=== PATIENT | male | born 1945 | race Caucasian/White ===

== ENCOUNTER 2023-10-02 09:23 | Outpatient (REF) | payer MEDICARE, OTHER, SELFPAY ==
[2023-10-02 11:00] LABS: Folate 6.2 ng/mL (> or = 4.0); Vitamin B12 418 pg/mL (200-900)
== END 2023-10-02 09:24 | disposition home or self-care (01) ==
LOC: HO.LAB 09:23
PROVIDERS: PCP Internal Medicine; Visit Provider Psychiatry & Neurology Neurology
DX: G20.A1 Parkinson's disease without dyskinesia, without mention of fluctuations (principal)
CPT/HCPCS: 36415; 82607; 82746

== ENCOUNTER 2023-10-31 11:17 | Outpatient (REF) | payer MEDICARE, OTHER, SELFPAY ==
--- NOTE | ~2023-10-31 | MR_ITS ---
EXAMINATION: MR BRAIN WITHOUT CONTRAST CLINICAL INFORMATION: Symptomatic Parkinson's disease. COMPARISON: None available. TECHNIQUE: MRI of the brain was obtained using routine sequences without contrast. FINDINGS: No focal restricted diffusion is demonstrated to suggest acute or subacute cerebral ischemia. No evidence of acute or chronic hemorrhagic products on heme-sensitive imaging. Region of Chronic encephalomalacia in the high right frontal lobe. Scattered and partially confluent periventricular, deep white matter, and brainstem T2 FLAIR hyperintensities consistent with moderate underlying microangiopathy. Proportional prominence of the ventricles and sulcal spaces without evidence of obstructive hydrocephalus. No abnormal mass effect. No midline shift. Normal appearance of the pituitary gland. Normal positioning of the cerebellar tonsils. Normal arterial and venous vascular flow voids are present. Normal, homogeneous marrow signal. Mild mucosal thickening of the paranasal sinuses. Moderate rightward nasal septal deviation. No signal abnormalities within the mastoids. Bilateral lens extractions. MR/MR head/brain wo con IMPRESSION: 1. No acute intracranial abnormalities. 2. Region of chronic encephalomalacia in the high right frontal lobe. Moderate underlying microangiopathy and generalized cerebral volume loss.
== END 2023-10-31 11:18 | disposition home or self-care (01) ==
LOC: HO.MRI 11:17
PROVIDERS: PCP Internal Medicine; Visit Provider Internal Medicine
DX: G20.A1 Parkinson's disease without dyskinesia, without mention of fluctuations (principal)
CPT/HCPCS: 70551

== ENCOUNTER 2025-06-15 08:53 | Outpatient (AMB) | payer MEDICARE, OTHER, SELFPAY ==
--- OUTSIDE RECORDS SUMMARY | 2024-05-07 10:00 | XMS_ITS | Encounter Summary ---
Author Organization [facility] Address [address] [place] [address] Care Team Providers Care Corrugated Sheet Material Sheeter Name Role Phone Deloris Giordano MD Primary Care Provider [phone] Encounter Details Date Type Department Care Team (Late st Contact Info) Description 05/07/2024 11:00 AM EDT Hospital Encounter TH HISTORIC ENCOUNTERS EASTERN CONVERSION ONLY Ernst Coello, BIGG [address] [place] [phone] Atelectasis Social History Tobacco Use Types Packs/Day Years Used Date Smoking Tobacco: Every Day Pipe Smokeless Tobacco: Never Alcohol Use Standard Drinks/Week Comments Yes 0 (1 standard drink = 0.6 oz pur e alcohol) Sex and Gender Information Value Date Recorded Sex Assigned at Male 08/26/2024 9:02 AM EST Legal Sex Male 8:33 PM EST Gender Identity Male 08/26/2024 9:02 AM EST Sexual Orientation Straight 08/26/2024 9: 02 AM EST documented as of this encounter Plan of Treatment Upcoming Encounters Date Type Department Care Team (Late st Contact Info) Description 08/12/2025 10:10 AM EST Office Visit [facility] - [address] [facility] [address] [place] [address] Gail Arias NP [address] [place] [address] 08/25/2025 8:30 AM EST Office Visit Orthopedic Surgery - [place] [address] [facility] 250 [place] [address] Murali Resendiz, CORRINE 175 [facility] [address] [place] [address] documented as of this encounter Procedures Procedure Name Priority Date/Time Associated Diagnosis Comments CHEST ROUTINE 2 VIEWS Routine 05/07/2024 11:26 AM EDT Atelectasis documented in this encounter Results * CHEST ROUTINE 2 VIEWS (05/07/2024 11:26 AM EDT) Anatomical Region Laterality Modality Radiographic Tammie ging 05/07/2024 11:0 4 AM EDT Narrative 05/07/2024 11:26 AM EDT [facility] Diagnostic Imaging Department [address] [place] [id number] Patient: FARHATSTEVEO.B./Age/Sex: 1945 - 78 - M Unit#: [id number] Location/Status: SPDIGEN/REG CLI Mnemonic/Ordering Site: CHESTXR/SPDI Ordering Physician: ERNST COELLO PA-C Chest Routine 2 Views - 05/07/24 - 1113 Report Status:Signed HISTORY: The patient is a 78-year-old male who underwent left upper lobe segmentectomy on 04/22/2024 for lung carcinoma, presenting for follow-up. FINDINGS: PA and lateral radiographs of the chest again demonstrate that the patient has undergone previous coronary artery bypass surgery as also seen on prior examinations most recently 04/24/2024. The large bore left side surgical chest tube has been removed since the prior study. Surgical sutures are again noted in the left perihilar area. Again seen is levoscoliosis of the thoracolumbar spine and dextroscoliosis of the included portion of the lumbar spine. The cardiac silhouette is within normal limits. The aortic knob is calcified. Left base discoid atelectasis has nearly completely resolved. The lungs are otherwise clear and the costophrenic angles are sharp. Again seen is mild volume loss in the left lung consistent with surgery. There is no pneumothorax. IMPRESSION: No pneumothorax following removal of large bore left side surgical chest tube since 04/24/2024. Postoperative changes are again seen in the left hemithorax. Left base discoid atelectasis has nearly completely resolved. The lungs are otherwise clear. The patient is again seen to have undergone previous CABG. Code 03204 Dictating Physician: MIGNON FOOTE MD Electronically Signed by: MIGNON FOOTE MD Dic Date/Time: 05/07/24 1121 Sign date/Time: 05/07/24 1126 Procedure Note Mignon Foote MD - 05/20/2024 [facility] Diagnostic Imaging Department [address] [place], [place] [id number] Patient: FARHATSTEVE /Age/Sex: 1945 78 - M Unit#: [id number] Location/Status: SPDIGEN/REG CLI Mnemonic/Ordering Site: CHESTXR/SPDI Ordering Physician: ERNST COELLO PA-C DR Chest Routine 2 Views - 05/07/24 - 1113 Report Status:Signed HISTORY: The patient is a 78-year-old male who underwent left upper lobe segmentectomy on 04/22/2024 for lung carcinoma, presenting for follow-up. FINDINGS: PA and lateral radiographs of the chest again demonstrate thatthe patient has undergone previous coronary artery bypass surgery as also seenon prior examinations most recently 04/24/2024. The large bore left sidesurgical chest tube has been removed since the prior study. Surgical sutures areagain noted in the left perihilar area. Again seen is levoscoliosis of the thoracolumbar spine and dextroscoliosis of the included portion of thelumbar spine. The cardiac silhouette is within normal limits. The aortic knobis calcified. Left base discoid atelectasis has nearly completely resolved.The lungs are otherwise clear and the costophrenic angles are sharp. Againseen is mild volume loss in the left lung consistent with surgery. There is no pneumothorax. IMPRESSION: No pneumothorax following removal of large bore left sidesurgical chest tube since 04/24/2024. Postoperative changes are again seen in theleft hemithorax. Left base discoid atelectasis has nearly completely resolved.The lungs are otherwise clear. The patient is again seen to have undergoneprevious CABG. Code 02691 Dictating Physician: MIGNON FOOTE MD Electronically Signed by: MIGNON FOOTE MD Dic Date/Time: 05/07/24 1121 Sign date/Time: 05/07/24 1126 Ernst PRIDE IMG XR PROCEDURES Final Result documented in this encounter Visit Diagnoses Diagnosis Atelectasis Pulmonary collapse documented in this encounter Care Teams Corrugated Sheet Material Sheeter Relationship Specialty Start Date End Date Deloris Giordano MD PCP - General Internal Medicine 02/07/18 05/08/24 documented as of this encounter
--- OUTSIDE RECORDS SUMMARY | 2024-05-16 09:53 | XMS_ITS | Encounter Summary ---
Author Organization [facility] [place] [address] Care Team Providers Care Customer Expert Name Role Phone Deloris Giordano MD Primary Care Provider [phone] Encounter Details Date Type Department Care Team (Late st Contact Info) Description 05/16/2024 10:53 AM EDT Hospital Encounter TH HISTORIC ENCOUNTERS EASTERN CONVERSION ONLY Carolina Arzola MD [address] [place] [address] Social History Tobacco Use Types Packs/Day Years Used Date Smoking Tobacco: Never Assessed Sex and Gender Information Value Date Recorded Sex Assigned at Male 08/26/2024 9:02 AM EST Legal Sex Male 8:33 PM EST Gender Identity Male 08/26/2024 9:02 AM EST Sexual Orientation Straight 08/26/2024 9: 02 AM EST documented as of this encounter Last Filed Vital Signs Vital Sign Reading Time Taken Comments Blood Pressure 148/86 05/16/2024 11:04 AM EDT Sitting Right arm Pulse 52 05/16/2024 11:04 AM EDT Temperature - - Respiratory Rate - - Oxygen Saturation - - Inhaled Oxygen Concentration - - Weight 71.7 kg (158 lb) 05/16/2024 11:0 4 AM EDT Height 167.6 cm (5' 6 ) 05/16/2024 11:0 4 AM EDT Body Mass Index 25.5 05/16/2024 11:04 AM EDT documented in this encounter Progress Notes * Carolina Arzola MD - 05/16/2024 11:00 AM EDT Dear Ernst, Thank you very much for referring this patient for consultation. HPI: 78-year-old man, who has multiple medical issues, but relatively in decent performance status, patient was on low-dose screening lung cancer program and found to have some suspicious left upper lung nodule, on subsequent follow- up patient found to have worsening of left upper lung nodule,so patient underwent robotic wedge resection of this nodule with completion of left upper lung lobectomy earlier this month, patient found to have T2a N0 pathology, patient had seen her adenocarcinoma with clear margins though there is some evidence of SAMUEL and visceral pleural invasion, because ofthis high risk features patient referred to me to discuss about potential adjuvant chemotherapy, patient already have made his mind that he does not want adjuvant chemotherapy or cytotoxic therapy ROS: GENERAL: No anorexia, unintentional weight loss, fever, chills, night sweats or any significant fatigue, patient still has been working part-time HEENT no headache no visual symptom NECK: No lumps, goiter, pain or significant neck swelling RESPIRATORY: Mild cough, no hemoptysis, no significant shortness of breath except on exertion CARDIOVASCULAR: No chest pain. GI: No abdominal discomfort, blood in stools or black stools MUSCULOSKELETAL: No new unusual aches and pain HEMATOLOGY/LYMPHOLOGY No prolonged bleeding, easy bruisability or swollen nodes Patient has some right upper extremity significant tremors due to his Parkinson's Other Systems review is non contributory PAST MEDICAL HISTORY: Parkinson disease Hypertension Dyslipidemia Type 2 diabetes Coronary artery disease Cataract Vitamin D deficiency Pulmonary fibrosis/COPD Adenocarcinoma of left lung Thoracic aortic aneurysm Prostate cancer PAST SURGICAL HISTORY: Left upper lung lobectomy Coronary artery bypass graft SOCIAL HISTORY: He is a former smoker, still smoke occasionally He drinks 3-4 times a week He is lives with his 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 aspirin EC 81 MG tablet, Take 1 tablet (81 mg total) by mouth daily., Disp: , Rfl: ??? atorvastatin (LIPITOR) tablet 40 mg, Take 1 tablet (40 mg total) by mouth daily., Disp: , Rfl: ??? carbidopa-levodopa (SINEMET) 25-100 MG per tablet, Take by mouth 3 (three) times a day., Disp: , Rfl: ??? metoprolol tartrate (LOPRESSOR) 25 MG tablet, Take by mouth 2 (two) times a day., Disp: , Rfl: You are allergic to the following Date Reviewed: 05/16/2024 Allergen Reactions Sulfa Antibiotics Not Noted PHYSICAL EXAM: BP 148/86 (BP Location: Right arm) Pulse 52 Temp 97.3 ??F (36.3 ??C) (Temporal) Ht 5' 6 (1.676 m) Wt 71.7 kg (158 lb) SpO2 100% BMI 25.50 kg/m?? ECOG 0-1 APPEARANCE: Alert and oriented in no acute distress ORAL CAVITY: No erythema or exudates NECK: Neck supple, no cervical and supraclavicular adenopathy, HEART: normal S1 and S2 LUNG: Distant breath sound otherwise clear bilaterally LYMPH NODES: No palpable superficial adenopathy ABDOMEN: soft, nontender and no organomegaly appreciated. EXTREMITIES: Extremities without any significant edema NEURO: Oriented X 3, no focal weakness; sensation is normal, there is some tremors in the right forearm LABS: Left upper lung lobectomy showed invasive acinar adenocarcinoma which is approximately 2 cm in maximum dimension, unifocal tumor, margins clean, Samuel positive, pleural visceral invasion identified lymphovascular invasion not identified, none of the lymph node has any evidence of malignancy, pathological stage T2aN0 ASSESSMENT SNOMED CT(R) 1. Adenocarcinoma of left lung (HCC) ADENOCARCINOMA OF LEFT LUNG 78-year-old man, who is a former smoker, was not lung cancer screening program and found to have a suspicious left upper lung lesion, underwent wedge resection with completion of left upperlung lobectomy earlier this month, patient found to have approximately 2 cm in maximum dimension unifocal acinar adenocarcinoma with clear margins and none of the lymph node positive for malignancy but unfortunately patient has evidence of pleural visceral invasion. Patient case was discussed in our multidisciplinary lung cancer conference and there was a consensus that he should be discussed about adjuvant chemotherapy with some survival benefit, patient has made his mind already that he does not want any cytotoxic therapy/chemotherapy. I told patient there is a limited benefit of 4 cycle ofadjuvant chemotherapy but patient seems reluctant to consider. I explained patient in detail about rationale of adjuvant chemotherapy etc., because of his multiple medical issues and limited benefit it is not inappropriate that not to have adjuvant chemotherapy but I told him about importance of surveillance, I recommend that he should have [address] scan for next couple years and then yearly for next 3 years PLAN: Return to office as needed Carolina Arzola MD cc: Deloris Giordano MD documented in this encounter Plan of Treatment Upcoming Encounters Date Type Department Care Team (Late st Contact Info) Description 08/12/2025 10:10 AM EST Office Visit [facility] - [address] [place] [address] Gail Arias, IAN [address] [place] [address] [address] [place] [address] 08/25/2025 8:30 AM EST Office Visit Orthopedic Surgery - [place] [address] [facility] [address] [place] [address] Murali Resendiz DPM [address] [place] [address] [place] [address] documented as of this encounter Procedures Procedure Name Priority Date/Time Associated Diagnosis Comments HISTORICAL IMAGING SCAN RESULT 05/16/2024 ..MISCELLANEOUS REFERENCE LAB TEST 05/16/2024 EXTERNAL CLINICAL LAB 05/16/2024 documented in this encounter Results * External clinical lab (05/16/2024) us Provider Onbase LAB BLOOD ORDERABLES Final Re sult * Miscellaneous reference lab test (05/16/2024) us Provider Onbase MD LAB BLOOD ORDERABLES Final Re sult * HISTORICAL IMAGING SCAN RESULT (05/16/2024) Anatomical Region Laterality Modality Ultrasound us Provider Onbase IMG US PROCEDURES Final Resul t documented in this encounter Visit Diagnoses Not on filedocumented in this encounter Care Teams Customer Expert Relationship Specialty Start Date End Date Deloris Giordano MD PCP - General 05/09/24 08/25/24 documented as of this encounter
--- OUTSIDE RECORDS SUMMARY | 2024-05-16 10:00 | XMS_ITS | Encounter Summary ---
Author Organization [facility] Address [address] [place] [address] Care Team Providers Care Agricultural Service Worker Name Role Phone Deloris Giordano MD Primary Care Provider [phone] Encounter Details Date Type Department Care Team (Late st Contact Info) Description 05/16/2024 11:00 AM EDT Hospital Encounter TH HISTORIC ENCOUNTERS EASTERN CONVERSION ONLY Carolina Arzola MD [address] [place] [address] Social History Tobacco Use Types Packs/Day Years [...] Encounters Date Type Department Care Team (Late Contact Info) Description 08/12/2025 10:10 AM EST Office Visit [facility] - [facility] [address] [facility] [address] [place] [address] Gail Arias NP [address] [place] [address] 08/25/2025 8:30 AM EST Office Visit Orthopedic Surgery - [place] [address] [facility] 250 [place] [phone] Murali Resendiz, DPM 175 [facility] [address] [place] [address] documented as of this encounter Visit Diagnoses Not on filedocumented in this encounter Care Teams Agricultural Service Worker Relationship Specialty Start Date End Date Deloris Giordano MD PCP - General 05/09/24 08/25/24 documented as of this encounter
--- NOTE | 2025-06-15 09:15 | A.OFFVIS_ITS ---
Intake Visit Reasons: follow up parkinson HPI Comments Details: 79 yo man with h/o pipe smoking, had left upper lung mass s/p resection, prostate cancer s/p XRT, Parkinson disease presented with tremor and loss of dexterity in right hand around 2021. He is presenting for follow-up management of Parkinson's disease. The patient's Parkinson's disease is considered reasonably controlled on Carbidopa-Levodopa 25/100 mg taken three times a day, though the patient reports sometimes missing the middle dose. Symptoms are predominantly on the right side of the body, with a right-hand tremor and a history of the right toe turning, though the toe issue is no longer serious. The patient also reports that memory is not as good as it used to be. Additionally, the patient has persistent back pain and has developed diarrhea, which is atypical for Parkinson's disease. Review of Systems Narrative - Neurological: Reports memory is not as good as it was. - Reports right hand tremor. - Reports a history of the right toe turning, which is no longer a serious issue. - Musculoskeletal: Reports back pain. - Gastrointestinal: Reports diarrhea. - Denies constipation. Physical Exam Neuro Other: Mental Status: Alert and oriented to person, place, and time. Normal attention. Normal spontaneous speech, fluency, and comprehension. Cranial Nerves: CN II: Visual mejia full to confrontation, visual acuity intact. CN III, IV, : Pupils equal, round, reactive to light and accommodation. Extraocular movements are normal. CN V: Facial sensation is normal. CN VII: Facial movements symmetrical. CN VIII: Hearing intact to bedside conversation is normal. CN IX, X: Palate elevates symmetrically. CN XI: Shoulder shrug and head turn symmetrical. CN XII: Tongue midline without atrophy or fasciculations. Extrapyramidal: Mild right hand resting tremor Speech: Normal; no dysarthria or tremor. Assessment & Plan Assessment & Plan (1) Parkinson disease: Comment: MRI brain WO at [facility] in 2023: Mild to mod diff atrophy, mild to mod MVD Code(s): G20.A1 - Parkinson's disease without dyskinesia, without mention of fluctuations Category: Medical Qualifiers: Dyskinesia presence: with dyskinesia Fluctuating manifestations: with fluctuating manifestations Qualified Code(s): G20.B2 - Parkinson's disease with dyskinesia, with fluctuations (2) Multifactorial dementia: Code(s): F03.90 - Unspecified dementia, unspecified severity, without behavioral dist urbance, psychotic disturbance, mood disturbance, and anxiety Category: Medical Plan Impression: 1. Parkinson's disease, with mild foot dystonia and fluctuating status 2. Mild multifactorial dementia 3. Right foot dystonic posturing of toes Recommendations: Carbidopa/levodopa, 25/100, 1 3 times a day Medications: Refilled carbidopa-levodopa 25-100 mg 1 tab PO TID 270 tabs 1RF Coding Level of Care Code Est Pt Level 3 (60975) Diagnoses Parkinson's disease with dyskinesia and fluctuating manifestations G20.B2 Dyskinesia presence: with dyskinesia Fluctuating manifestations: with fluctuating manifestations Multifactorial dementia F03.90
--- OUTSIDE RECORDS SUMMARY | 2025-06-15 09:29 | XMS_ITS ---
Author Name [facility] Organization Unknown Care Team Organization Name Specialty Phone Email Start Date End Da te [facility] ACO 03/11/2025 [facility] Deloris Pasquale Primary Care 12/29/2022 03/10/20 [facility] Termed, PROVIDER Primary Care 05/30/202202/20
--- OUTSIDE RECORDS SUMMARY | 2025-06-15 09:29 | XMS_ITS | Clinical Summary ---
Author Organization [facility] Address [address] [place] [address] Care Team Providers Care Contamination Consultant Name Role Phone Deloris Giordano MD Primary Care Provider Allergies Active Allergy Reactions Criticality Noted Date Comments Sulfa Antibiotics 05/16/2024 Medications Medication Sig Dispensed Refills Start Date End Date Status atorvastatin (LIPITOR) tablet 40 mg Take 1 tablet (40 mg total) by mouth daily. 0 Active metoprolol tartrate (LOPRESSOR) 25 MG tablet Take by mouth 2 (two) times a day. 0 Active carbidopa-levodopa (SINEMET) 25-100 MG per tablet Take by mouth 3 (three) times a day. 0 Active aspirin EC 81 MG tablet Take 1 tablet (81 mg total) by mouth daily. 0 Active Active Problems No known active problems Family History Medical History Relation Name Comments Cancer Mother Relation Name Status Comments Mother Social History Tobacco Use Types Packs/Day Years Used Date Smoking Tobacco: Some Days Cigarettes Smokeless Tobacco: Never Tobacco Cessation:Ready to Q uit: Not Asked; Counseling Given: Not Answered Comments:Pipe, per pt Alcohol Use Standard Drinks/Week Comments Yes 4 (1 standard drink = 0.6 oz pur e alcohol) Sex and Gender Information Value Date Recorded Sex Assigned at Not on file Gender Identity Not on file Sexual Orientation Not on file Job Start Date Occupation Industry Not on file Not on file Not on file Last Filed Vital Signs Vital Sign Reading Time Taken Comments Blood Pressure 148/86 05/16/2024 11:04 AM EDT Pulse 52 05/16/2024 11:04 AM EDT Temperature 36.3 C (97.3 F) 05/16/2024 11:04 AM EDT Respiratory Rate - - Oxygen Saturation 100% 05/16/2024 11:04 AM EDT Inhaled Oxygen Concentration - - Weight 71.7 kg (158 lb) 05/16/2024 11:04 AM EDT Height 167.6 cm (5' 6 ) 05/16/2024 11:04 AM EDT Body Mass Index 25.5 05/16/2024 11:04 AM EDT Plan of Treatment Health Maintenance Due Date Last Done Comments Hepatitis C Screening 1945 COVID-19 Vaccine (#1) 02/20/1946 Depression Screening 1958 Preventative Health Evaluation 1964 DTap / Tdap / Td (1 - Tdap) 1965 Shingrix-Zoster Vaccine (1 o f 2) 1996 Fall Risk Assessment 2011 RSV Adult > 60+ Yrs or (1 - 1-dose 75+ series) 2021 Influenza Vaccine (#1) 2025 Pneumococcal Vaccine Completed 03/13/2016, 09/18/2014 Hepatitis B Vaccines Aged Out No long er eligible based on patient's age to complete this topic RSV Ped < 20 months Aged Out No longe r eligible based on patient's age to complete this topic Care Teams Contamination Consultant Relationship Specialty Start Date End Date Deloris Giordano MD [address] [facility] [address] [place] [phone] PCP - General Internal Medicine 05/09/24
--- OUTSIDE RECORDS SUMMARY | 2025-06-15 09:29 | XMS_ITS | Clinical Summary ---
Author Organization [facility] [place] [address] Phone Care Team Providers Care Mailroom Supervisor Name Role Phone Deloris Giordano MD Primary Care Provider [phone] Allergies Active Allergy Reactions Criticality Noted Date Comments Other 03/03/2024 Seasonal Allergies Sulfa (Sulfonamide Antibiotics) 03/22/2018 No reaction documented. Medications carbidopa-levodo pa (SINEMET) 25-100 mg per tablet 1 Tablet 3 times daily. 09/20/2022 Active aspirin 81 mg chewable tablet Take 81 mg by mouth daily. Active methocarbamoL (ROBAXIN) 500 mg tablet Take 1 tablet (500 mg total) by mouth 2 (two) times a day for 10 days. 20 tablet 09/16/2024 Active metoprolol tartrate (LOPRESSOR) 25 mg tablet Take 1 tablet (25 mg total) by mouth 2 (two) times a day. 60 each 11 01/15/2025 Active atorvastatin (LIPITOR) 40 mg tablet TAKE 1 TABLET BY MOUTH DAILY 90 tablet 1 05/01/2025 Active Active Problems Problem Noted Date Diagnosed Date History of lung cancer 10/31/2024 Assessment & Plan (05/13/2025 9:39 AM EDT): Mr. Castro is a 79 yr. 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 chest CT surveillance scan which was performed at [facility] on 05/04/2025 and shows no new or worsening pulmonary nodules or mediastinal lymphadenopathy. His next chest CT scan will be due in 6 months time which will be October 2025 and have a visit at the thoracic surgery department thereafter to discuss results. Assessment & Plan (11/06/2024 4:11 PM EDT): Mr. Castro is a 79 yr. 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 His most recent chest CT surveillance scan which was performed at [facility] on 10/22/2024 and shows no new or worsening pulmonary nodules or mediastinal lymphadenopathy. His next chest CT scan will be due in Apr 2025 and have a visit at the thoracic surgery department thereafter to discuss results. Lung cancer (CMS/HCC V24, CMS/HCC V28) Overview (06/30/2024): Last Assessment & Plan: Mr. Castro is a 78 yr. 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 He was educated that we would be referring him to medical oncology due to the fact that his staging was a 1B for visceral pleural invasion and that he would also continue to follow with the thoracic surgery department every [address] scans for the first 2 years following his surgical date at which point in time his chest CT intervals will be increased to 12-month intervals for a total surveillance of 5 years. His next chest CT scan will be due in October 2024 and have a visit at the thoracic surgery department thereafter to discuss results. Parkinson's disease (tremor, stiffness, slow motion, unstable posture) (CMS/HCC V24, CMS/HCC V28) 03/05/2024 Fatigue 05/26/2021 Overview (06/30/2024): Last Assessment & Plan: As above. If stress echocardiogram is unremarkable he should follow-up with his PCP for noncardiac reasons of his fatigue. Shortness of breath 05/26/2021 Overview (06/30/2024): Last Assessment & Plan: As above. 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 Continue Assessment & Plan (09/17/2024 9:52 AM EST): Orders: Hemoglobin A1c; Future Comprehensive metabolic panel; Future CBC and differential; Future Hypertension 03/28/2018 Overview (06/30/2024): Last Assessment & Plan: Patient's blood pressure somewhat robust in office today blood pressure controlled on chart review. Continue beta-artemio at current dose. Increasing his exercise as his Parkinson's allows will also help to manage his blood pressure. Would not want to overcorrect his blood pressure as his Sinemet may cause orthostatic hypotension leading to falls. Assessment & Plan (09/17/2024 9:52 AM EST): Orders: Hemoglobin A1c; Future Comprehensive metabolic panel; Future CBC and differential; Future Lung nodule 03/28/2018 Overview (06/30/2024): 10/2017 CT-LD: RUL 4mm; LAURIE 5mm, ? 3mm nodule. Stable bilateral Last Assessment & Plan: 78-year-old man with an enlarging left upper lobe pulmonary nodule measuring with 1 cm solid component that is new. This is suspicious for clinical stage I lung cancer until proven otherwise. I did discuss the findings on his CAT scan with him in detail as described in the HPI which she seemed understand. We also discussed pulmonary nodules in general and how their size, shape, and growth over time affect our level of suspicion for malignancy. His pulmonary function testing is adequate and I also discussed with him the diagnosis, staging, and treatment of lung cancer. Options discussed were continued observation versus needle biopsy versus surgical wedge resection possible lobectomy. He wants to take some time to discuss this with his and will decide how to proceed and call us within this week. All questions were answered. Pulmonary fibrosis ([facility] V24, [facility] V28) Overview (06/30/2024): 02/2018 Thoracic aortic aneurysm ([facility] V24) Overview (06/30/2024): 10/2017 4 cm ascending; stable compared to prior exam. Last Assessment & Plan: The patient's aortic size is stable across multiple evaluations, most recently measured in 10/2022 at 4.2 cm. Continue periodic surveillance with updated echocardiogram prior to his next visit. Type 2 diabetes mellitus wit h cataract ([facility] V24, [facility] V28) 03/28/2018 Assessment & Plan (09/17/2024 9:52 AM EST): Orders: Ambulatory referral to Podiatry; Future Hemoglobin A1c; Future Comprehensive metabolic panel; Future CBC and differential; Future Vitamin D deficiency 03/28/2018 S/P CABG (coronary artery bypass graft) 03/28/20 18 Overview (04/10/2025): 2017 x4 CAD (coronary artery disease) 11/23/2016 Overview (06/30/2024): four-vessel CABG 11/2016 with a FOX to the LAD, SVG the proximal LAD, PDA and OM 3 Last Assessment & Plan: The patient has no anginal symptoms to his current MET workload. He is just started walking again and is feeling well. Continue ongoing medical therapy with aspirin, beta-artemio and statin. He will notify us of any changes in his activity tolerance or symptoms. Encounters Date Type Department Care Team Description 05/21/2025 8:30 AM EDT Office Visit Orthopedic Surgery [facility] [address] [facility] [address] [place] [phone] Murali Resendiz DPM Controlled type 2 diabetes with neuropathy ([facility] V24, [facility] V28) (Primary Dx); Hammertoes of both feet; Ulcer of toe of right foot, with fat layer exposed ([facility] V24, [facility] V28) 05/13/2025 9:30 AM EDT Office Visit Thoracic Surgery [facility] [address] [facility] [address] [place] [phone] Ernst Ardon PA History of lung cancer (Primary Dx) 05/04/2025 10:26 AM EDT - 05/04/2025 11:59 PM EDT Hospital Encounter [facility] CT Scan [address] [place] [phone] History of lung cancer Discharge Disposition: Home or Self Care 04/17/2025 Telephone [facility] [address] [place] [phone] Gail Arias NP 04/01/2025 11:00 AM EDT Ancillary Procedure [facility] [address] [place] [phone] Aneurysm of ascending aorta without rupture ([facility] V24); Coronary artery disease involving nonautologous biological coronary bypass graft without angina pectoris; Primary hypertension; Pre-op examination; Pure hypercholesterolemia from Last 3 Months Immunizations Immunization Administration Dates Next Due Pneumococcal conjugate 13 va lent (Prevnar 13, PCV13) 2mo and older 03/13/2016 Pneumococcal polysaccharide 23 valent (Pneumovax 23) 2yo and older 09/18/2014 Surgical History Surgery Date Site/Laterality Comments CORONARY ARTERY BYPASS GRAFT 11/2016 PROCEDURE: HISTORICAL CABG; COMMENT: x4 EYE SURGERY PROCEDURE: HISTORICAL EYE SURGERY OTHER SURGICAL HISTORY 04/22/2024 Left PROCEDURE: CO BRONCHOSCOPY W/CPTR-ASST IMAGE-GUIDED NAVIGATION; COMMENT: LAURIE lung cancer Medical History Medical History Date Comments Pulmonary fibrosis ([facility] V24, [facility] V28) 03/28/2018 DX:Pulmonary fibrosis (HCC); COMMENT: 02/2018 Gout 03/28/2018 DX:Gout Hyperlipidemia 03/28/2018 DX:Hyperlipidemi a Hypertension 03/28/2018 DX:Hypertension Cataract 03/28/2018 DX:Cataract Type 2 diabetes mellitus wit h cataract ([facility] V24, [facility] V28) 03/28/2018 DX:Type 2 diabetes mellitus with cataract (HCC) ED (erectile dysfunction) 03/28/2018 DX:ED (erectile dysfunction) DM (diabetes mellitus), type 2 with peripheral vascular complications ([facility] V24, [facility] V28) 03/28/2018 DX:DM (diabetes mellitus), type 2 with peripheral vascular complications (HCC) Lung nodule 03/28/2018 DX:Lung nodule; COMMENT: 10/2017 CT-LD: RUL 4mm; LAURIE 5mm, ? 3mm nodule. Stable bilateral Thoracic aortic aneurysm ([facility] V24) 8 DX:Thoracic aortic aneurysm ([facility]); COMMENT: 10/2017 CT-LD: 4 cm ascending; stable compared to prior exam. 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 S/P CABG (coronary artery by pass graft) 03/28/2018 DX:S/P CABG (coronary artery bypass graft); COMMENT: 2016 x4 CAD (coronary artery disease) 11/23/2016 DX :CAD (coronary artery disease) Family History Medical History Relation Name Comments Heart attack Father Hyperlipidemia Father Hypertension Father Colon cancer Mother Relation Name Status Comments Father Mother Social History Tobacco Use Types Packs/Day Years Used Date Smoking Tobacco: Every Day Pipe Smokeless Tobacco: Never Tobacco Cessation:Ready to Q uit: Not Asked; Counseling Given: Not Answered Alcohol Use Standard Drinks/Week Comments Yes 0 (1 standard drink = 0.6 oz pur e alcohol) Sex and Gender Information Value Date Recorded Sex Assigned at Male 08/26/2024 9:02 AM EST Legal Sex Male 8:33 PM EST Gender Identity Male 08/26/2024 9:02 AM EST Sexual Orientation Straight 08/26/2024 9: 02 AM EST Obstetrics History Last Filed Vital Signs Vital Sign Reading Time Taken Comments Blood Pressure 136/74 05/13/2025 9:17 AM EDT Pulse 55 05/13/2025 9:17 AM EDT Temperature 36.5 C (97.7 F) 05/13/2025 9:17 AM EDT Respiratory Rate 16 05/13/2025 9:17 AM EDT Oxygen Saturation 99% 05/13/2025 9:17 AM EDT Inhaled Oxygen Concentration - - Weight 68.9 kg (151 lb 12.8 oz) 05/13/2025 9:17 AM EDT Height 165.1 cm (5' 5 ) 05/13/2025 9:17 AM EDT Body Mass Index 25.26 05/13/2025 9:17 AM EDT Plan of Treatment Upcoming Encounters Date Type Department Care Team (Late st Contact Info) Description 08/12/2025 10:10 AM EST Office Visit [facility] [address] [facility] [address] [place] [address] Gail Arias, IAN [address] [place] [address] [address] [place] [address] 08/25/2025 8:30 AM EST Office Visit Orthopedic Surgery - [place] [address] [facility] [address] [place] [phone] Murali Resendiz, DPM [address] [address] Health Maintenance Due Date Last Done Comments Diabetes: Annual Foot Exam 1955 Diabetes: Annual Retina Eye Exam 1955 DTaP,Tdap,and Td Vaccines (1 - Tdap) 1965 Zoster Vaccines (1 of 2) 01/07/2017 11/12/2016 COVID-19 Vaccine (3 - Pfizer risk series) 01/19/2021 12/22/2020, 12/01/2020 RSV Immunization Adult Patients (1 - 1-dose 75+ series) 2021 Diabetes: Annual Urine Albumin-Creatinine Ratio (uACR) 07/01/2022 01/14/2021 Hepatitis C Screening 07/01/2022 Social Influencers of Health Screening 07/01/2022 Diabetes: Blood Sugar Contro l Test (HGBA1C) 03/17/2025 09/17/2024, 2023 Influenza Vaccine (#1) 2025 Diabetes: Annual GFR (Glomerular Filtration Rate) 09/17/2025 09/17/2024, 04/30/2024, 04/30/2024 Falls Risk Assessment 09/17/2025 09/17/2024 , 04/30/2024 Hypertension/CHF/CAD Annual BMP Blood Test 09/17/2025 09/17/2024, 04/30/2024, 04/30/2024 Medicare Annual Wellness Visit 09/17/2025 09/17/2024 Cholesterol Screening (Lipid Panel) 2028 2023 Pneumococcal Vaccine: 50+ Years Completed 03/13/2016, 09/18/2014 Depression Screening Completed 09/25/2024, 2023 HIB Vaccines Aged Out No longer eligi ble based on patient's age to complete this topic HPV Vaccines Aged Out No longer eligi ble based on patient's age to complete this topic Hepatitis A Vaccines Aged Out No long er eligible based on patient's age to complete this topic Hepatitis B Vaccines Aged Out No long er eligible based on patient's age to complete this topic IPV Vaccines Aged Out No longer eligi ble based on patient's age to complete this topic MMR Vaccines Aged Out No longer eligi ble based on patient's age to complete this topic Meningococcal ACWY Vaccine Aged Out N o longer eligible based on patient's age to complete this topic Meningococcal B Vaccine Aged Out No l onger eligible based on patient's age to complete this topic RSV Immunization Patients Under 20 months Aged Out No longer eligible b ased on patient's age to complete this topic Varicella Vaccines Aged Out No longer eligible based on patient's age to complete this topic Procedures Procedure Name Priority Date/Time Associated Diagnosis Comments CT CHEST WO CONTRAST Routine 05/04/2025 11:02 AM EDT History of lung cancer TRANSTHORACIC ECHOCARDIOGRAM (TTE) COMPLETE Routine 04/01/2025 11:22 AM EDT Aneurysm of ascending aorta without rupture (CMS/HCC V24) Coronary artery disease involving nonautologous biological coronary bypass graft without angina pectoris Primary hypertension Pre-op examination Pure hypercholesterolemia COMPREHENSIVE METABOLIC PANEL Routine 09/17/2024 10:36 AM EST Type 2 diabetes mellitus with cataract ([facility]/HCC V24, CMS/HCC V28) Cellulitis of foot Mixed hyperlipidemia Primary hypertension HEMOGLOBIN A1C Routine 09/17/2024 10:36 AM EST Type 2 diabetes mellitus with cataract (CMS/HCC V24, CMS/[facility] V28) Cellulitis of foot Mixed hyperlipidemia Primary hypertension FALLS RISK ASSESSMENT Routine 04/30/2024 DEPRESSION SCREENING Routine 2023 LIPID PANEL Routine 2023 URINE ALBUMIN CREATININE RATIO Routine 01/14/2021 from Last 3 Months or Most Recently Relevant to Health Maintenance Results * CT Chest wo Contrast (05/04/2025 11:02 AM EDT) Anatomical Region Laterality Modality Body Computed Tomogra phy 05/08/2025 12:5 9 PM EDT Impressions 05/08/2025 1:08 PM EDT 1. No acute intrathoracic abnormality. 2. Postoperative mediastinum with coronary artery bypass graft and dense coronary calcifications. 3. Esophageal thickening nonspecific. 4. Peripheral reticulation/fibrosis. No consolidation or effusion. Left upper lobe segmentectomy. 5. Remote rib deformities with possible recent fracture of the left 10th rib. -------- FINAL REPORT -------- Dictated By: Leslye Vasquez Dictated Date: 05/08/2025 12:59 ET Assigned Physician: Leslye Vasquez Reviewed and Electronically Signed By: Leslye Vasquez Signed Date: 05/08/2025 13:08 ET Workstation ID: [id number] Transcribed By: Self Edit Transcribed Date: 05/08/2025 12:59 ET Narrative 05/08/2025 1:08 PM EDT PROCEDURE: CT CHEST WITHOUT CONTRAST INDICATION: history of lung cancer TECHNIQUE: Chest CT without contrast. Multi planar reformats were created and interpreted. The examination was performed utilizing dose reduction techniques.Total DLP 567 mGy/cm COMPARISON: No priors available. FINDINGS: LUNGS/PLEURA: Peripheral reticulation/fibrosis. No consolidation or effusion. Left upper lobe segmentectomy. MEDIASTINUM: Postoperative mediastinum with coronary artery bypass graft and dense coronary calcifications. Esophageal thickening nonspecific. CHEST WALL: No axillary lymphadenopathy or superficial hematoma. UPPER ABDOMEN: Subcentimeter low-attenuation lesions in the liver presumably benign. Extensive atherosclerotic plaque nonobstructing calculi. BONES: No acute fracture. Scattered degenerative changes seen throughout the bones. Remote rib deformities with possible recent fracture of the left 10th rib.. Procedure Note Leslye Vasquez MD - 05/08/2025 PROCEDURE: CT CHEST WITHOUT CONTRAST INDICATION: history of lung cancer TECHNIQUE: Chest CT without contrast. Multi planar reformats were createdand interpreted. The examination was performed utilizing dose reductiontechniques.Total DLP 567 mGy/cm COMPARISON: No priors available. FINDINGS: LUNGS/PLEURA: Peripheral reticulation/fibrosis. No consolidation oreffusion. Left upper lobe segmentectomy. MEDIASTINUM: Postoperative mediastinum with coronary artery bypass graftand dense coronary calcifications. Esophageal thickening nonspecific. CHEST WALL: No axillary lymphadenopathy or superficial hematoma. UPPER ABDOMEN: Subcentimeter low-attenuation lesions in the liverpresumably benign. Extensive atherosclerotic plaque nonobstructingcalculi. BONES: No acute fracture. Scattered degenerative changes seen throughoutthe bones. Remote rib deformities with possible recent fracture of theleft 10th rib.. IMPRESSION: 1. No acute intrathoracic abnormality. 2. Postoperative mediastinum with coronary artery bypass graft and densecoronary calcifications. 3. Esophageal thickening nonspecific. 4. Peripheral reticulation/fibrosis. No consolidation or effusion. Leftupper lobe segmentectomy. 5. Remote rib deformities with possible recent fracture of the left 10thrib. -------- FINAL REPORT -------- Dictated By: Leslye Vasquez Dictated Date: 05/08/2025 12:59 ET Assigned Physician: Leslye Vasquez Reviewed and Electronically Signed By: Leslye Vasquez Signed Date: 05/08/2025 13:08 ET Workstation ID: [id number] Transcribed By: Self Edit Transcribed Date: 05/08/2025 12:59 ET us Ernst PRIDE IMG CT PROCEDURES Final Result * (ABNORMAL) TRANSTHORACIC ECHOCARDIOGRAM (TTE) COMPLETE (04/01/2025 11:22 AM EDT) Left Atrium Minor [place] 5.8 cm CV PACS Left Atrium Major [place] 5.6 cm CV PACS LA Area Sys (A2C) 20 cm2 CV PACS LA Area Sys (A4C) 15 cm2 CV PACS LA Volume (BP) 43 mL CV PACS RA Area 11.1 cm2 CV PACS RA 2D Volume 22 mL CV PACS Aortic Sinus Valsalva 3.5 cm CV PACS Ascending Aorta 4.3 cm CV PACS IVC Proximal 1.5 cm CV PACS IVC Proximal 0.5 cm CV PACS IVSD 0.8 0.6 - 1.0 cm CV PACS LVIDD 4.1(A) 4.2 - 5.8 cm CV PACS LVIDS 2.9 2.5 - 4.0 cm CV PACS LVOT Diameter 2.2 cm CV PACS LVOT Mean Bernardo 0.6 m/s CV PACS LVOT Mean Grad 2 mmHg CV PACS LVOT Peak VTI 24.3 cm CV PACS LVOT Peak Bernardo 1.0 m/s CV PACS LVOT Peak Gradient 4 mmHg CV PACS LVPWD 1.0 0.6 - 1.0 cm CV PACS MV E' Tissue Velocity Lateral 10 cm/s CV PACS MV E' Tissue Velocity Septal 4 cm/s CV PACS LVOT Area 3.8 cm2 CV PACS LVOT Stroke Volume 92 mL CV PACS E Wave Deceleration Time 236 119 - 242 ms CV PACS MV Peak A Bernardo 0.65 m/s CV PACS MV Peak E Bernardo 0.70 m/s CV PACS PV Acceleration Time 77 ms CV PACS PV Acceleration Time 85 ms CV PACS PV Acceleration Time 81 ms CV PACS RV Diastolic Basal Dimension 2.8 2.5 - 4.1 cm CV PACS RV S' 6 cm/s CV PACS TAPSE 12 mm CV PACS E/E' Ratio Septal 18 CV PACS E/E' Ratio Averaged 12 CV PACS Relative Wall Thickness ratio 0.49 CV PACS FS 29 % CV PACS LV Mass 2D 114 g CV PACS LVOT flow 228 mL/s CV PACS E/A Ratio 1.1 CV PACS E/E' Ratio Lateral 7 CV PACS BSA 1.78 m2 CV PACS LA Volume Index (BP) 24 mL/m2 CV PACS LVIDD Index 2.33 cm/m2 CV PACS LVIDS Index 1.65 cm/m2 CV PACS LV Mass Index 2D 65 50 - 102 g/m2 CV PACS LVOT Stroke Index 52 mL/m2 CV PACS RA 2D Volume Index 13(A) 18 - 32 mL/m2 CV PACS Ascending Aorta Index 2.44 cm/m2 CV PACS Anatomical Region Laterality Modality Ultrasound Narrative 04/05/2025 6:15 PM EDT Left ventricle cavity size is normal. Left ventricular systolic function is in the normal range with an ejection fraction in the 55-70% range. No regional LV wall motion abnormalities noted. Left ventricle wall thickness is normal. Mild diastolic dysfunction Right ventricle cavity is normal. Right ventricular systolic function is moderately reduced. The ascending aorta is dilated (4.3 cm). This is unchanged from echocardiogram dated 2022 Trace mitral and tricuspid insufficiency. No evidence of pulmonary hypertension Left Ventricle Left ventricle cavity size is normal. Wall thickness is normal. Systolic function is normal with an ejection fraction in the 55-70% range. There are no regional LV wall motion abnormalities. There is no diastolic dysfunction. Right Ventricle Right ventricle cavity appears normal. Systolic function is moderately reduced. Left Atrium Left atrium cavity size is normal. Right Atrium Right atrium cavity is small. IVC/SVC Inferior vena cava structure is normal. RA pressures is estimated to be 3 mmHg (IVC diameter <21 mm and decreases >50% during inspiration). Mitral Valve The leaflets are mildly thickened. There is mild annular calcification. There is no significant mitral valve regurgitation. There is no significant stenosis noted. Tricuspid Valve Tricuspid valve structure is normal. Tricuspid regurgitation is inadequate for estimation of right ventricular systolic pressure. There is no significant tricuspid valve stenosis. Aortic Valve The aortic valve is trileaflet. The leaflets are not thickened and exhibit normal excursion. There is mild regurgitation with a centrally directed jet. There is no evidence of aortic valve stenosis. Pulmonic Valve The pulmonic valve was not well visualized. No significant pulmonic valve regurgitation. No significant pulmonary valve stenosis noted. Ascending Aorta The ascending aorta is (4.3 cm). Pericardium Pericardium appears normal. There is no pericardial effusion. Study Details Overall the study quality was adequate. Gail Arias NP CV ECHO PROCEDURES Final Result * Hemoglobin A1c (09/17/2024 10:36 AM EST) [facility] Hemoglobin A1C 6.1 <6.5 % LAB CHEMISTRY METHOD 09/17/2024 1:38 PM EST [facility] Mean Bld Glu Estim. 128 mg/dL LAB CHEMISTRY METHOD 09/17/2024 1:38 PM [facility] Blood Venous blood specimen / Unknown Venipuncture / Unknown 09/17/2024 10:36 AM EST 09/17/2024 10:53 AM EST Deloris Giordano MD LAB BLOOD ORDERABLES Final Res ult [facility] [address] [place] [address], [place] [phone] * (ABNORMAL) Comprehensive metabolic panel (09/17/2024 10:36 AM EST) [facility] Sodium 144 133 - 145 mmol/L LAB CHEMISTRY METHOD 09/17/2024 12:38 PM [facility] Potassium 4.5 3.5 - 5.5 mmol/L LAB CHEMISTRY METHOD 09/17/2024 12:38 PM [facility] Chloride 108 96 - 110 mmol/L LAB CHEMISTRY METHOD 09/17/2024 12:38 PM [facility] CO2 27 21 - 32 mmol/L LAB CHEMISTRY METHOD 09/17/2024 12:38 PM [facility] Anion Gap 9 3 - 11 LAB CHEMISTRY METHOD 09/17/2024 12:38 PM [facility] Glucose 102(H) 70 - 100 mg/dL LAB CHEMISTRY METHOD 09/17/2024 12:38 PM [facility] BUN 20 5 - 25 mg/dL LAB CHEMISTRY METHOD 09/17/2024 12:38 PM [facility] Creatinine 0.99 0.70 - 1.30 mg/dL LAB CHEMISTRY METHOD 09/17/2024 12:38 PM [facility] eGFR 78 >=60 mL/min/1. 73m2 LAB CHEMISTRY METHOD 09/17/2024 12:38 PM [facility] Comment:Calculation based on the Chronic Kidney Disease Epidemiology Collaboration (CKD-EPI) equation refit without adjustment for race. BUN/Creatinine Ratio 20.2 LAB CHEMISTRY METHOD 09/17/2024 12:38 PM [facility] Calcium 9.3 8.5 - 10.5 mg/dL LAB CHEMISTRY METHOD 09/17/2024 12:38 PM [facility] AST (SGOT) 21 10 - 42 unit/L LAB CHEMISTRY METHOD 09/17/2024 12:38 PM [facility] ALT (SGPT) 9(L) 10 - 60 unit/L LAB CHEMISTRY METHOD 09/17/2024 12:38 PM [facility] Alkaline Phosphatase 162(H) 42 - 121 unit/L LAB CHEMISTRY METHOD 09/17/2024 12:38 PM [facility] Total Protein 6.5 6.0 - 8.0 g/dL LAB CHEMISTRY METHOD 09/17/2024 12:38 PM [facility] Albumin 3.5 3.2 - 5.0 g/dL LAB CHEMISTRY METHOD 09/17/2024 12:38 PM [facility] Total Bilirubin 1.2 0.0 - 1.4 mg/dL LAB CHEMISTRY METHOD 09/17/2024 12:38 PM [facility] Blood Venous blood specimen / Unknown Venipuncture / Unknown 09/17/2024 10:36 AM EST 09/17/2024 10:54 AM EST us Deloris D Chaganti MD LAB BLOOD ORDERABLES Final Res ult [facility] ([facility]) [facility] [address] [place] [address], * Falls Risk Assessment (04/30/2024) Falls Risk Assessment abstracted Historical Provider HEALTH MAINTENANCE Final Result * Depression Screening (2023) HM Depression Screening abstracted Historical Provider HEALTH MAINTENANCE Final Result * Lipid panel (2023) Pathologist [facility] LDL/HDL Ratio 2 0 - 4 Triglycerides 68 0 - 150 mg/dL Cholesterol 144 0 - 200 mg/dL HDL 62 >=40 mg/dL LDL Cholesterol 69 0 - 100 mg/dL Blood Venous blood specimen / Unknown Historical Provider LAB BLOOD ORDERABLES Nayana l Result * Urine Albumin Creatinine Ratio (01/14/2021) Pathologist [facility] Urine Albumin Creatinine Ratio abstracted Historical Provider HEALTH MAINTENANCE Final Result from Last 3 Months or Most Recently Relevant to Health Maintenance Insurance MEDICARE [employer] Care Teams Mailroom Supervisor Relationship Specialty Start Date End Date Deloris Giordano MD [address] [phone] PCP - General Internal Medicine 08/26/24
== END 2025-06-15 09:23 | disposition home or self-care (01) ==
LOC: HO.HSM 08:54
PROVIDERS: PCP Internal Medicine; Visit Provider Psychiatry & Neurology Neurology
DX: G20.B2 Parkinson's disease with dyskinesia, with fluctuations (principal); F03.90 Unspecified dementia, unspecified severity, without behavioral disturbance, psychotic disturbance, mood disturbance, and anxiety
CPT/HCPCS: 99213

== ENCOUNTER → 2025-06-15 08:53 | Outpatient (BNVA) | payer MEDICARE, OTHER, SELFPAY | PROVIDERS: PCP Internal Medicine; Visit Provider Psychiatry & Neurology Neurology | DX: G20.B2 Parkinson's disease with dyskinesia, with fluctuations (principal); F03.90 Unspecified dementia, unspecified severity, without behavioral disturbance, psychotic disturbance, mood disturbance, and anxiety; R19.7 Diarrhea, unspecified; M54.9 Dorsalgia, unspecified; Z85.46 Personal history of malignant neoplasm of prostate; Z85.118 Personal history of other malignant neoplasm of bronchus and lung; Z87.891 Personal history of nicotine dependence | CPT/HCPCS: 99212 ==